=== PATIENT | male | born 1965 | race Caucasian/White ===

== ENCOUNTER 2021-01-25 21:34 | Inpatient (IN) | payer BC, SELFPAY ==
[2021-01-25 21:35] VITALS: BP 139/85; PULSE 73; RESP 16; TEMP 36.6; O2SAT 93; BMI 38.5
--- NOTE | 2021-01-25 21:58 | EKG12_ITS ---
Test Reason : DYSRHYTHMIA Blood Pressure : / mmHG Vent. Rate : 121 BPM Atrial Rate : 093 BPM P-R Int : 000 ms QRS Dur : 094 ms QT Int : 296 ms P-R-T Axes : 000 -12 -04 degrees QTc Int : 420 ms Atrial fibrillation with rapid ventricular response Nonspecific ST abnormality Abnormal ECG Confirmed by MAYRA DO, JORDAN ([id number]), supervising editor trailer ABDELRAHMAN FREED ([id number]) on 01/26/2021 10:10:18 AM Referred By: Confirmed By:JORDAN NUNEZ MD
[2021-01-25 22:46] LABS: Absolute Lymphocyte Count 2.21 X10^3/uL (0.83-4.51); Absolute Neutrophil Count 5.5 X10^3/uL (2.0-7.7); Basophil# 0.09 X10^3/uL; Basophil% 1.1 % (0-1); Eosinophil# 0.04 X10^3/uL; Eosinophils% 0.5 % (0-5); Hematocrit 44.8 % (40-54); Lymphocyte # 2.21 X10^3/ul (0.83-4.51); Mean Corp Hgb Conc 33.5 g/dL (32-36); Mean Corpuscular Hgb 32.4 pg (27.0-32.0); Mean Corpuscular Volume 96.8 fL (80-94); Mean Platelet Vol. 9.2 fl (6.2-12.0); Monocyte# 0.66 X10^3/uL; Monocyte% 7.8 % (0-10); NRBC Flagged by Analyzer 0 % (0-5); Neutrophil # 5.48 X10^3/uL (2.7-7.7); Neutrophil % 64.4 % (47-70); Platelet Count 323 K/mm3 (150-450); RBC Distribution Width CV 16.7 % (11.6-14.6); RBC Distribution Width SD 59.5 fl (35.1-43.9); Red Blood Count 4.63 M/mm3 (4.6-6.2); White Blood Count 8.5 K/mm3 (4.4-11.0)
--- NOTE | 2021-01-25 22:50 | RAD_ITS ---
INDICATION: dyspnea, being checked out because of alcohol intoxication. EXAMINATION/TECHNIQUE: X-RAY - XR Chest 1 View COMPARISON: None. FINDINGS: The lungs are clear. The cardiomediastinal silhouette is unremarkable. No pleural effusion or pneumothorax. No acute osseous abnormalities. RAD/Chest 1 View (Portable) IMPRESSION: No acute radiographic abnormalities. Electronically Signed: Vinod Garcia MD at 23:40 EDT Tel , Service support ,
[2021-01-25 22:51] LABS: Prothrombin Time (Protime)PT. 12.9 SECONDS (11.7-14.9)
[2021-01-25 22:52] LABS: Partial Thromboplast Time 24.9 Seconds (24.1-36.2)
[2021-01-25 23:10] LABS: Amphetamine Urine VISTA NEGATIVE (<1000 ng/mL); Barbiturate Urine VISTA NEGATIVE (< 200 ng/mL); Benzodiazepine Urine VISTA NEGATIVE (< 200 ng/mL); Cocaine Urine VISTA NEGATIVE (< 300 ng/mL); Ecstacy Urine VISTA NEGATIVE (< 500 ng/mL); Methadone Urine VISTA NEGATIVE (< 300 ng/mL); PCP Urine VISTA NEGATIVE (< 25 ng/mL); THC Urine VISTA NEGATIVE (< 50 ng/mL); Vista UDS pH Range 6
[2021-01-25 23:10] LABS: ALB/GLOB Ratio 0.8 RATIO (0.9-2.4); AST(SGOT) 145 U/L (15-37); Alanine Aminotransfer ALT/SGPT 171 U/L (16-61); Albumin, Serum 3.5 g/dL (3.2-5.0); Alkaline Phosphatase 107 U/L (45-117); Anion Gap 12 (5-15); BUN 7 mg/dL (7-18); BUN/Creat Ratio 8.4 RATIO (10-20); Calcium,Total 8.4 mg/dL (8.5-10.1); Chloride 106 mmol/L (98-107); Creatinine, Serum 0.83 mg/dL (0.70-1.30); EST Glomerular Filtration Rate 103 mL/min (>60); Est Glom Filt Rate - Afr Amer 124 mL/min (>60); Estimated Creatinine Clearance 119.67 ml/min; Globulin 4.3 g/dL (2.2-4.2); Glucose 127 mg/dL (74-106); Magnesium 1.9 mg/dL (1.6-2.6); Potassium 3.5 mmol/L (3.5-5.1); Protein, Total 7.8 g/dL (6.4-8.2); Sodium Level 143 mmol/L (136-145); Thyroid Stim Hormone (TSH) 4.19 uIU/mL (0.358-3.74)
--- NOTE | 2021-01-25 23:10 | EX.ED.DYSGE1 ---
HPI History of Present Illness Chief Complaint: ETOH Intox Informant: patient Narrative Narrative: 55-year-old male presents to the emergency department for alcohol detox. Patient states that 3 to 4 months ago [address] gave up street drugs which she had been using continuously for decades. In its place he put alcohol. He has been drinking 1/2 gallon or more of vodka per day. He states his girlfriend's been hiding from him and his ration them down to just a few drinks a day but recently started to escalate. States he will wake up in the middle the night and have to drink in order to sleep. He states that he just needs to find a way to stop alcohol as it is starting to negatively affect his life. Patient notes that he takes metoprolol for paroxysmal atrial fibrillation. He states that typically he can feel it will take an extra metoprolol and it resolves. [facility] Medical History (Updated 01/26/21 @ 00:[address] Ricky Zeng DO) Hypertension Hypothyroid Paroxysmal atrial fibrillation with RVR Home Medications levothyroxine 50 mcg PO DAILY 01/25/21 [History Last Taken Unknown] metoprolol tartrate 50 mg PO DAILY 01/25/21 [History Last Taken Unknown] Allergy/AdvReac Type Severity Reaction Status Date / Time No Known Allergies Allergy Verified 01/25/21 21:37 Surgical History History of hemorrhoidectomy Social History (Updated 01/25/21 @ 23:[address] Ricky Zeng DO) Smoking Status: Never smoker alcohol intake: current details: Half gallon + of vodka/day substance use type: former substance user ROS ROS ED Constitutional Constitutional ED: Denies chills or weight loss Eyes Eyes: Denies change in vision or diplopia ENT ENT ED: Denies ear pain, rhinorrhea or sore throat Cardiovascular Cardiovascular: Denies chest pain, orthopnea, palpitations or racing heartbeat Respiratory/Chest Respiratory/Chest: Denies cough, dyspnea or orthopnea Gastrointestinal Gastrointestinal: Denies abdominal pain, diarrhea, nausea or vomiting Genitourinary Genitourinary ED: Denies dysuria, hematuria or urinary frequency Musculoskeletal Musculoskeletal: Denies arthralgias or myalgias Integumentary Denies abscess or rash Neurologic Neurologic: Denies headache(s) or weakness Psychiatric Psychiatric: Reports depression; Denies anxiety, suicidal ideation or suicidal thoughts Endocrine Endocrinology: Denies polydipsia, polyphagia or polyuria Allergic/Immunologic Allergic/Immunologic ED: Denies mouth swelling, tongue swelling or urticaria EXAM Physical Exam Const Vital Signs: 01/25/21 21:35 01/25/21 23:35 01/26/21 00:10 Temperature 98 F Temperature Source Oral Pulse Rate 73 140 H 121 H Respiratory Rate 16 14 19 H Blood Pressure 139/85 H 146/101 H 137/98 H Blood Pressure Mean 103 116 111 Pulse Ox 93 97 94 Oxygen Delivery Method Room Air Positive well nourished and well developed General Appearance ED: well developed HEENT Reports normocephalic, head/scalp atraumatic and moist mucous membranes Eyes PERRL and EOMs intact bilaterally Neck no lymphadenopathy, supple and no JVD Resp normal respiratory effort and clear to auscultation bilaterally Cardio no murmurs Cardio Narrative: Irregularly irregular tachycardic rhythm GI normal to inspection, nondistended, normoactive bowel sounds and non-tender Palpation: soft Back/Spine no CVA tenderness and normal ROM Extremity normal to inspection General Extremety ED: Negative for edema General Extremity: Negative for edema Neuro oriented x3 and CN's II-XII intact bilaterally Sensorium / Orientation: alert Motor Exam: strength 5/5 throughout Psych mental status grossly normal Mood & Affect: Negative for depressed or tearful Skin no rashes or lesions noted and no wounds MDM MDM MDM Narrative Medical decision making narrative: Patient noted to be in A. fib with RVR. He received 2 doses of IV metoprolol as that is what has worked for him in the past. This did not change his heart rate. He was then given Cardizem. His alcohol level tonight is 352. Troponin is negative. TSH 4.19. He is on levothyroxine. Electrolytes are in check. Plan will be admission into the hospital alcohol detox Lab Data Attestation: I reviewed the patient's lab results. Labs: Laboratory Results - last 24 hr 01/25/21 01/25/21 01/25/21 21:45 21:45 21:45 WBC 8.5 RBC 4.63 Hgb 15.0 Hct 44.8 MCV 96.8 H MCH 32.4 H MCHC 33.5 RDW Std Deviation 59.5 H RDW Coeff of Melecio 16.7 H Plt Count 323 MPV 9.2 Immature Gran % (Auto) 0.200 Neut % (Auto) 64.4 Lymph % (Auto) 26.0 [place] % (Auto) 7.8 Eos % (Auto) 0.5 Baso % (Auto) 1.1 H Absolute Neuts (auto) 5.5 Absolute Lymphs (auto) 2.21 Nucleated RBC % 0 PT 12.9 INR 1.0 APTT 24.9 Sodium 143 Potassium 3.5 Chloride 106 Carbon Dioxide 25.0 Anion Gap 12 BUN 7 Creatinine 0.83 Estim Creat Clear Calc 119.67 Est GFR (MDRD) Af Amer 124 Est GFR (MDRD) Non-Af 103 BUN/Creatinine Ratio 8.4 L Glucose 127 H Calcium 8.4 L Magnesium 1.9 Total Bilirubin 0.60 AST 145 H ALT 171 H Alkaline Phosphatase 107 Troponin I Total Protein 7.8 Albumin 3.5 Globulin 4.3 H Albumin/Globulin Ratio 0.8 L TSH 4.19 H Urine Opiates Screen Urine Methadone Screen Ur Barbiturates Screen Ur Phencyclidine Scrn Ur Amphetamines Screen U Methamphetamin-MDMA U Benzodiazepines Scrn Urine Cocaine Screen U Cannabinoids Screen Ur Drug Screen Comment Ethyl Alcohol 01/25/21 01/25/21 01/25/21 21:45 21:45 22:05 WBC RBC Hgb Hct MCV MCH MCHC RDW Std Deviation RDW Coeff of Melecio Plt Count MPV Immature Gran % (Auto) Neut % (Auto) Lymph % (Auto) [place] % (Auto) Eos % (Auto) Baso % (Auto) Absolute Neuts (auto) Absolute Lymphs (auto) Nucleated RBC % PT INR APTT Sodium Potassium Chloride Carbon Dioxide Anion Gap BUN Creatinine Estim Creat Clear Calc Est GFR (MDRD) Af Amer Est GFR (MDRD) Non-Af BUN/Creatinine Ratio Glucose Calcium Magnesium Total Bilirubin AST ALT Alkaline Phosphatase Troponin I < 0.015 Total Protein Albumin Globulin Albumin/Globulin Ratio TSH Urine Opiates Screen NEGATIVE Urine Methadone Screen NEGATIVE Ur Barbiturates Screen NEGATIVE Ur Phencyclidine Scrn NEGATIVE Ur Amphetamines Screen NEGATIVE U Methamphetamin-MDMA NEGATIVE U Benzodiazepines Scrn NEGATIVE Urine Cocaine Screen NEGATIVE U Cannabinoids Screen NEGATIVE Ur Drug Screen Comment Ethyl Alcohol 352.0 H* Radiography Diagnostic Testing: Radiology Impression Chest X-Ray 01/25/21 22:50 IMPRESSION: No acute radiographic abnormalities. Electronically Signed: Vinod Garcia MD at 23:40 EDT Tel , Service support , EKG Initial EKG: Attestation: I personally reviewed and interpreted this EKG as follows: Comments: EKG demonstrates atrial fibrillation with rapid ventricular response at rate of 121. Discharge Plan Dx/Rx/DC Orders Clinical Impression: Alcohol addiction, Paroxysmal atrial fibrillation with RVR Disposition Disposition: Acute Care Hospital [facility]
[2021-01-25] MEDS: Metoprolol Tartrate 5 MG/5 ML Vial IV ×2 (23:34→23:51)
[2021-01-25 23:35] VITALS: BP 146/101; PULSE 140; RESP 14; O2SAT 97
[2021-01-26] VITALS (36 sets, daily range): BP systolic 105–164; BP diastolic 71–98; PULSE 70–121; RESP 11–87; TEMP 36.6–37.1; O2SAT 90–99; BMI 38.2
[2021-01-26] MEDS: Metoprolol Tartrate 5 MG/5 ML Vial IV (00:09)
[2021-01-26] MEDS: dilTIAZem 25 MG/5 ML Vial 20 MG IV BOLUS (00:31)
--- NOTE | 2021-01-26 00:45 | PCM.HP.STD ---
HPI - General HPI Narrative LOUIE HUMPHREY, is a 55 M who presents to the emergency room intoxicated who states he is requesting to go through alcohol detoxification program. The patient has a significant past medical history of atrial fibrillation for which he usually takes metoprolol as needed and is controlled, however, today he was found to be in atrial fibrillation with RVR that was resistant to metoprolol therapy. He was given a Cardizem bolus and rate was subsequently controlled. Patient denies chest pain shortness of breath fevers chills, nausea vomiting or diarrhea at this time. He states he has a long-term history of drinking half a gallon to a gallon of vodka a day and through the help of his girlfriend has been able to reduce his daily intake at one point to 3 drinks daily but was never able to completely stop drinking. At this time of remorse the patient is obviously intoxicated and ,therefore questionable in regards to his motivation. He will be admitted for atrial fibrillation and rate control and placed on CIWA protocol. [facility] Medical History (Updated 01/26/21 @ 00:[address] Ignacio Frost MD) Hypertension Hypothyroid Paroxysmal atrial fibrillation with RVR Home Medications levothyroxine 50 mcg PO DAILY 01/25/21 [History Last Taken Unknown] metoprolol tartrate 50 mg PO DAILY 01/25/21 [History Last Taken Unknown] Allergy/AdvReac Type Severity Reaction Status Date / Time No Known Allergies Allergy Verified 01/25/21 21:37 Surgical History History of hemorrhoidectomy Social History (Updated 01/25/21 @ 23:[address] Ricky Zeng DO) Smoking Status: Never smoker alcohol intake: current details: Half gallon + of vodka/day substance use type: former substance user ROS Constitutional Constitutional: Denies chills or fever(s) Eyes Eyes: Denies blurry vision ENT HEENT: Denies abnormal hearing Cardiovascular Cardiovascular: Denies chest pain or palpitations Respiratory/Chest Respiratory/Chest: Denies shortness of breath at rest Gastrointestinal Gastrointestinal: Denies abdominal pain Genitourinary Genitourinary: Denies dysuria Musculoskeletal Musculoskeletal: Denies back pain Psychiatric Psychiatric: Reports anxiety Vital Signs Vital Signs Vital Signs: 01/25/21 21:35 01/25/21 23:35 01/26/21 00:10 Temperature 98 F Temperature Source Oral Pulse Rate 73 140 H 121 H Respiratory Rate 16 14 19 H Blood Pressure 139/85 H 146/101 H 137/98 H Blood Pressure Mean 103 116 111 Pulse Ox 93 97 94 Oxygen Delivery Method Room Air 01/26/21 00:32 01/26/21 00:33 Temperature 98 F Temperature Source Oral Pulse Rate 92 92 Respiratory Rate 21 H Blood Pressure 137/98 H 137/98 H Blood Pressure Mean 111 111 Pulse Ox 95 Oxygen Delivery Method Physical Exam Const alert and no apparent distress General Appearance: cooperative HEENT head/scalp atraumatic Eyes PERRL Neck supple Lymph Lymphatic: no lymphadenopathy noted Resp normal respiratory effort, normal air movement and clear to auscultation bilaterally Cardio S1 normal heart sound and S2 normal heart sound Rhythm: abnormal rhythm irregularly irregular GI normal to inspection, nondistended, normoactive bowel sounds GI Narrative: obese Extremity General Extremity: no tenderness to palpation of joints or extremities Skin General Skin Exam: turgor normal Neuro CN's II-XII intact bilaterally Psych Mood & Affect: anxious Lab / Micro Data Result Diagrams: 01/25/21 21:45 01/25/21 21:45 Labs: Laboratory Results - last 24 hr 01/25/21 01/25/21 01/25/21 21:45 21:45 21:45 WBC 8.5 RBC 4.63 Hgb 15.0 Hct 44.8 MCV 96.8 H MCH 32.4 H MCHC 33.5 RDW Std Deviation 59.5 H RDW Coeff of Melecio 16.7 H Plt Count 323 MPV 9.2 Immature Gran % (Auto) 0.200 Neut % (Auto) 64.4 Lymph % (Auto) 26.0 [place] % (Auto) 7.8 Eos % (Auto) 0.5 Baso % (Auto) 1.1 H Absolute Neuts (auto) 5.5 Absolute Lymphs (auto) 2.21 Nucleated RBC % 0 PT 12.9 INR 1.0 APTT 24.9 Sodium 143 Potassium 3.5 Chloride 106 Carbon Dioxide 25.0 Anion Gap 12 BUN 7 Creatinine 0.83 Estim Creat Clear Calc 119.67 Est GFR (MDRD) Af Amer 124 Est GFR (MDRD) Non-Af 103 BUN/Creatinine Ratio 8.4 L Glucose 127 H Calcium 8.4 L Magnesium 1.9 Total Bilirubin 0.60 AST 145 H ALT 171 H Alkaline Phosphatase 107 Troponin I Total Protein 7.8 Albumin 3.5 Globulin 4.3 H Albumin/Globulin Ratio 0.8 L TSH 4.19 H Urine Opiates Screen Urine Methadone Screen Ur Barbiturates Screen Ur Phencyclidine Scrn Ur Amphetamines Screen U Methamphetamin-MDMA U Benzodiazepines Scrn Urine Cocaine Screen U Cannabinoids Screen Ur Drug Screen Comment Ethyl Alcohol 01/25/21 01/25/21 01/25/21 21:45 21:45 22:05 WBC RBC Hgb Hct MCV MCH MCHC RDW Std Deviation RDW Coeff of Melecio Plt Count MPV Immature Gran % (Auto) Neut % (Auto) Lymph % (Auto) [place] % (Auto) Eos % (Auto) Baso % (Auto) Absolute Neuts (auto) Absolute Lymphs (auto) Nucleated RBC % PT INR APTT Sodium Potassium Chloride Carbon Dioxide Anion Gap BUN Creatinine Estim Creat Clear Calc Est GFR (MDRD) Af Amer Est GFR (MDRD) Non-Af BUN/Creatinine Ratio Glucose Calcium Magnesium Total Bilirubin AST ALT Alkaline Phosphatase Troponin I < 0.015 Total Protein Albumin Globulin Albumin/Globulin Ratio TSH Urine Opiates Screen NEGATIVE Urine Methadone Screen NEGATIVE Ur Barbiturates Screen NEGATIVE Ur Phencyclidine Scrn NEGATIVE Ur Amphetamines Screen NEGATIVE U Methamphetamin-MDMA NEGATIVE U Benzodiazepines Scrn NEGATIVE Urine Cocaine Screen NEGATIVE U Cannabinoids Screen NEGATIVE Ur Drug Screen Comment Ethyl Alcohol 352.0 H* Radiology Impression Chest X-Ray 01/25/21 22:50 IMPRESSION: No acute radiographic abnormalities. Electronically Signed: Vinod Garcia MD at 23:40 EDT Tel , Service support , Assessment & Plan Assessment/Plan (1) Alcohol addiction: (2) Atrial fibrillation with rapid ventricular response: PLAN: Plan 1. Alcohol addiction/currently intoxicated/requesting withdrawal protocol?admit patient to progressive care unit Place patient on CIWA protocol 2. Atrial fibrillation with rapid ventricular response?patient will be admitted to progressive care unit, will add Cardizem as needed for rate control and continuing monitoring for possible chemical cardioversion as the patient states he routinely switches back into sinus rhythm. We will start patient on baby aspirin if not already on. 3. DVT prophylaxis?low molecular weight heparin Visit Charges Inpatient E&M: 31101 Init Hosp L2
[2021-01-26] MEDS: Phenobarbital 32.4 MG Tablet 64.8 MG PO ×6 (02:08→21:06)
[2021-01-26] MEDS: traZODone 100 MG Tablet PO ×2 (02:08→21:06)
[2021-01-26] MEDS: hydrOXYzine PAM 25 MG Capsule 50 MG PO ×4 (02:09→21:06)
[2021-01-26] MEDS: Gabapentin 300 MG Capsule PO ×2 (03:56→14:40)
[2021-01-26 05:39] LABS: Absolute Lymphocyte Count 1.48 X10^3/uL (0.83-4.51); Absolute Neutrophil Count 4.8 X10^3/uL (2.0-7.7); Basophil# 0.09 X10^3/uL; Basophil% 1.3 % (0-1); Eosinophil# 0.03 X10^3/uL; Eosinophils% 0.4 % (0-5); Hematocrit 39.6 % (40-54); Hemoglobin 13.5 g/dL (13.0-16.5); Lymphocyte # 1.48 X10^3/ul (0.83-4.51); Mean Corp Hgb Conc 34.1 g/dL (32-36); Mean Corpuscular Hgb 32.5 pg (27.0-32.0); Mean Corpuscular Volume 95.4 fL (80-94); Mean Platelet Vol. 9.3 fl (6.2-12.0); Monocyte# 0.69 X10^3/uL; Monocyte% 9.8 % (0-10); NRBC Flagged by Analyzer 0 % (0-5); Neutrophil # 4.75 X10^3/uL (2.7-7.7); Neutrophil % 67.4 % (47-70); Platelet Count 251 K/mm3 (150-450); RBC Distribution Width CV 16.4 % (11.6-14.6); RBC Distribution Width SD 57.5 fl (35.1-43.9); Red Blood Count 4.15 M/mm3 (4.6-6.2); White Blood Count 7.1 K/mm3 (4.4-11.0)
[2021-01-26 06:07] LABS: Anion Gap 11 (5-15); BUN 6 mg/dL (7-18); BUN/Creat Ratio 7.9 RATIO (10-20); Calcium,Total 8.1 mg/dL (8.5-10.1); Chloride 104 mmol/L (98-107); Creatinine, Serum 0.76 mg/dL (0.70-1.30); EST Glomerular Filtration Rate 114 mL/min (>60); Est Glom Filt Rate - Afr Amer 138 mL/min (>60); Estimated Creatinine Clearance 130.69 ml/min; Glucose 95 mg/dL (74-106); Potassium 3.2 mmol/L (3.5-5.1); Sodium Level 142 mmol/L (136-145)
[2021-01-26] MEDS: Levothyroxine 50 MCG Tablet PO (06:07)
[2021-01-26] MEDS: Folic Acid 1 MG Tablet PO (09:12)
[2021-01-26] MEDS: Metoprolol Tartrate 50 MG Tablet PO (09:12)
[2021-01-26] MEDS: Thiamine Hydrochloride 100 MG Tablet PO (09:12)
[2021-01-26] MEDS: Enoxaparin 40 MG/0.4 ML Syringe SC (09:13)
[2021-01-26] MEDS: Potassium Chloride Oral Tablet 20 MEQ 40 MEQ PO (09:13)
--- NOTE | 2021-01-26 09:22 | ADDICTION ---
This newswriter met with PT to conduct ASAM,MSE,AUDIT assessments and to plan for d/c. All assessments completed, faxed to [facility] and placed in PT's chart. PT declined f/u coordination and stated that he plans to attend AA meetings post d/c from [facility]. This newswriter provided counseling resources and education. PT did not identify a need for transportation post d/c from [facility]. He plans to d/c to home.
[2021-01-26] MEDS: LORazepam 2 MG/ML Syringe IV (10:26)
--- NOTE | 2021-01-26 11:41 | PCM.PN.HOSP ---
Documented by User: Shin DANIELSON 01/26/21 11:52 Subjective Subjective Patient is a 55-year-old male comfortably resting in chair, alert and oriented x3. Patient endorses tremors, denies hallucinations or loss of consciousness. Objective Data Objective Data Vital Signs: Vital Signs Temp Pulse Resp BP Pulse Ox 98.7 F 85 20 H 115/73 93 01/26/21 06:13 01/26/21 11:00 01/26/21 11:00 01/26/21 11:00 01/26/21 11:00 Oxygen Delivery Method Room Air Weight: 297 lb 9.985 oz Body Mass Index (BMI) 38.2 Intake & Output: Intake and Output for Last 24 Hours 01/24/21 01/25/21 01/26/21 23:59 23:59 23:59 Intake Total 367.00 / 367.00 Balance 367.00 / 367.00 Lab / Micro Data Result Diagrams: 01/26/21 05:10 01/26/21 05:10 Labs: Laboratory Results - last 24 hr 01/25/21 01/25/21 01/25/21 21:45 21:45 21:45 WBC 8.5 RBC 4.63 Hgb 15.0 Hct 44.8 MCV 96.8 H MCH 32.4 H MCHC 33.5 RDW Std Deviation 59.5 H RDW Coeff of Melecio 16.7 H Plt Count 323 MPV 9.2 Immature Gran % (Auto) 0.200 Neut % (Auto) 64.4 Lymph % (Auto) 26.0 [place] % (Auto) 7.8 Eos % (Auto) 0.5 Baso % (Auto) 1.1 H Absolute Neuts (auto) 5.5 Absolute Lymphs (auto) 2.21 Nucleated RBC % 0 PT 12.9 INR 1.0 APTT 24.9 Sodium 143 Potassium 3.5 Chloride 106 Carbon Dioxide 25.0 Anion Gap 12 BUN 7 Creatinine 0.83 Estim Creat Clear Calc 119.67 Est GFR (MDRD) Af Amer 124 Est GFR (MDRD) Non-Af 103 BUN/Creatinine Ratio 8.4 L Glucose 127 H Calcium 8.4 L Magnesium 1.9 Total Bilirubin 0.60 AST 145 H ALT 171 H Alkaline Phosphatase 107 Troponin I Total Protein 7.8 Albumin 3.5 Globulin 4.3 H Albumin/Globulin Ratio 0.8 L TSH 4.19 H Urine Opiates Screen Urine Methadone Screen Ur Barbiturates Screen Ur Phencyclidine Scrn Ur Amphetamines Screen U Methamphetamin-MDMA U Benzodiazepines Scrn Urine Cocaine Screen U Cannabinoids Screen Ur Drug Screen Comment Ethyl Alcohol 01/25/21 01/25/21 01/25/21 21:45 21:45 22:05 WBC RBC Hgb Hct MCV MCH MCHC RDW Std Deviation RDW Coeff of Melecio Plt Count MPV Immature Gran % (Auto) Neut % (Auto) Lymph % (Auto) [place] % (Auto) Eos % (Auto) Baso % (Auto) Absolute Neuts (auto) Absolute Lymphs (auto) Nucleated RBC % PT INR APTT Sodium Potassium Chloride Carbon Dioxide Anion Gap BUN Creatinine Estim Creat Clear Calc Est GFR (MDRD) Af Amer Est GFR (MDRD) Non-Af BUN/Creatinine Ratio Glucose Calcium Magnesium Total Bilirubin AST ALT Alkaline Phosphatase Troponin I < 0.015 Total Protein Albumin Globulin Albumin/Globulin Ratio TSH Urine Opiates Screen NEGATIVE Urine Methadone Screen NEGATIVE Ur Barbiturates Screen NEGATIVE Ur Phencyclidine Scrn NEGATIVE Ur Amphetamines Screen NEGATIVE U Methamphetamin-MDMA NEGATIVE U Benzodiazepines Scrn NEGATIVE Urine Cocaine Screen NEGATIVE U Cannabinoids Screen NEGATIVE Ur Drug Screen Comment Ethyl Alcohol 352.0 H* 01/26/21 01/26/21 05:10 05:10 WBC 7.1 RBC 4.15 L Hgb 13.5 Hct 39.6 L MCV 95.4 H MCH 32.5 H MCHC 34.1 RDW Std Deviation 57.5 H RDW Coeff of Melecio 16.4 H Plt Count 251 MPV 9.3 Immature Gran % (Auto) 0.100 Neut % (Auto) 67.4 Lymph % (Auto) 21.0 [place] % (Auto) 9.8 Eos % (Auto) 0.4 Baso % (Auto) 1.3 H Absolute Neuts (auto) 4.8 Absolute Lymphs (auto) 1.48 Nucleated RBC % 0 PT INR APTT Sodium 142 Potassium 3.2 L Chloride 104 Carbon Dioxide 27.0 Anion Gap 11 BUN 6 L Creatinine 0.76 Estim Creat Clear Calc 130.69 Est GFR (MDRD) Af Amer 138 Est GFR (MDRD) Non-Af 114 BUN/Creatinine Ratio 7.9 L Glucose 95 Calcium 8.1 L Magnesium Total Bilirubin AST ALT Alkaline Phosphatase Troponin I Total Protein Albumin Globulin Albumin/Globulin Ratio TSH Urine Opiates Screen Urine Methadone Screen Ur Barbiturates Screen Ur Phencyclidine Scrn Ur Amphetamines Screen U Methamphetamin-MDMA U Benzodiazepines Scrn Urine Cocaine Screen U Cannabinoids Screen Ur Drug Screen Comment Ethyl Alcohol Radiography Diagnostic Testing: Radiology Impression Chest X-Ray 01/25/21 22:50 IMPRESSION: No acute radiographic abnormalities. Electronically Signed: Vinod Garcia MD at 23:40 EDT Tel , Service support , Physical Exam Narrative See subjective. Const alert and oriented x3 General Appearance: anxious HEENT head/scalp atraumatic and moist oral mucous membranes Head and Scalp: normocephalic Eyes PERRL, EOMs intact bilaterally and conjunctivae normal Neck no lymphadenopathy, supple and no JVD Resp normal respiratory effort, no use of accessory muscles and clear to auscultation bilaterally Cardio regular rate, regular rhythm, no murmurs and no JVD GI normal to inspection, nondistended, normoactive bowel sounds, soft to palpation, non-tender and non-distended Extremity normal to inspection, full ROM and no clubbing, cyanosis or edema Skin no rashes or lesions noted, no wounds and no jaundice Neuro CN's II-XII intact bilaterally Psych affect normal Assessment & Plan Assessment/Plan (1) Atrial fibrillation with rapid ventricular response: (2) Alcohol abuse: PLAN: 1) Alcohol abuse/Impending withdrawal Endorses drinking 1/2 gallon to a full gallon of vodka per day, as well as needing to wake up in the middle the night to drink in order to help him sleep. On my exam today patient reports and displays mild to moderate hand tremors, as well as difficulty sleeping. Ativan x1 given. Addiction medicine counselor met with patient, patient would like to read more about program before deciding to enroll. JHONNYWA AR score 9. Plan; continue phenobarbital taper, continue thiamine and folic acid replacement, gabapentin as needed, Bentyl as needed, Vistaril as needed, Imodium as needed, Zofran as needed, trazodone as needed, 180 consulted, will transfer to ICU if indicated. 2) A-Fib w/ RVR Rate controlled on diltiazem p.o. Diltiazem infusion discontinued due to concerns of worsening withdrawal. Plan; continue Lopressor p.o. daily, continue Cardizem p.o. twice daily. DVT prophylaxis -Lovenox SC Patient seen by Shin Ortiz PA-C, under the supervision of Dr. Washburn. Documented by User: Dr. Adrian Washburn MD 01/26/21 12:59 Objective Data Lab / Micro Data Result Diagrams: 01/26/21 05:10 01/26/21 05:10 Assessment & Plan Addt'l Comments This patient was seen in conjunction with Shin Ortiz PA-C. I have independently interviewed and examined the patient and reviewed pertinent historical, laboratory, and other data. Please refer to Shin Ortiz PA-C's note for details of this patient's presentation, findings, and recommendations. I have reviewed Shin Oritz PA-C's note and concur with documented findings. In brief, patient is a 55-year-old with history of chronic alcohol dependence presented with acute alcohol intoxication. Patient was also found to be in A. fib with RVR admitted to a monitored bed for further management Physical Examination: GENERAL: Patient appears delirious and restless HEENT: Atraumatic; EYES; Anicteric, Normal Conjunctiva NECK; supple, normal thyroid, RESPIRATORY: Diminished to auscultation CARDIOVASCULAR: Regular S1 S2, GI: soft, normoactive bowel sounds, : No Renal angle tenderness; EXTREMITIES: No edema, no clubbing, MUSCULOSKELETAL: no muscle waisting NEURO: Awake; no lateralizing signs. SKIN: No Rash PSYCH; restless Assessment: 1. New onset A. fib with RVR 2. Acute alcohol withdrawal 3. Chronic alcohol dependence 4. Obesity with BMI of 38.2 5. Hypokalemia 6. DVT prophylaxis Recommendations: 1. I have discussed the results of my overview and impressions with the patient 2. Options for management were reviewed Visit Charges Inpatient E&M: 26369 [facility] Hosp L3
[2021-01-26] MEDS: dilTIAZem 60 MG CAP.SR.12H PO ×2 (11:44→21:06)
[2021-01-26] MEDS: 0.9% Saline Lock 10 ML Syringe IV (12:51)
[2021-01-27] VITALS (12 sets, daily range): BP systolic 116–142; BP diastolic 75–85; PULSE 83–132; RESP 18; TEMP 36.4–36.9; O2SAT 95–97
[2021-01-27] MEDS: Phenobarbital 32.4 MG Tablet 64.8 MG PO ×6 (01:46→21:40)
[2021-01-27] MEDS: LORazepam 0.5 MG Tablet PO (01:46)
[2021-01-27] MEDS: Levothyroxine 50 MCG Tablet PO (06:18)
[2021-01-27 07:10] LABS: Absolute Neutrophil Count 6.3 X10^3/uL (2.0-7.7); Basophil# 0.06 X10^3/uL; Basophil% 0.7 % (0-1); Eosinophil# 0.06 X10^3/uL; Eosinophils% 0.7 % (0-5); Hematocrit 40.4 % (40-54); Hemoglobin 13.5 g/dL (13.0-16.5); Lymphocyte % 16.4 % (19-41); Mean Corp Hgb Conc 33.4 g/dL (32-36); Mean Corpuscular Hgb 32.4 pg (27.0-32.0); Mean Corpuscular Volume 96.9 fL (80-94); Mean Platelet Vol. 9.7 fl (6.2-12.0); Monocyte% 8.2 % (0-10); NRBC Flagged by Analyzer 0.2 % (0-5); Neutrophil # 6.29 X10^3/uL (2.7-7.7); Neutrophil % 73.5 % (47-70); Platelet Count 199 K/mm3 (150-450); RBC Distribution Width CV 15.9 % (11.6-14.6); RBC Distribution Width SD 56.6 fl (35.1-43.9); Red Blood Count 4.17 M/mm3 (4.6-6.2); White Blood Count 8.6 K/mm3 (4.4-11.0)
[2021-01-27 07:45] LABS: AST(SGOT) 80 U/L (15-37); Alanine Aminotransfer ALT/SGPT 106 U/L (16-61); Albumin, Serum 3.1 g/dL (3.2-5.0); Alkaline Phosphatase 86 U/L (45-117); Anion Gap 8 (5-15); BUN 7 mg/dL (7-18); BUN/Creat Ratio 8.5 RATIO (10-20); Bilirubin, Direct 0.43 mg/dL (0.00-0.30); Calcium,Total 8.7 mg/dL (8.5-10.1); Chloride 102 mmol/L (98-107); Creatinine, Serum 0.82 mg/dL (0.70-1.30); EST Glomerular Filtration Rate 104 mL/min (>60); Est Glom Filt Rate - Afr Amer 126 mL/min (>60); Estimated Creatinine Clearance 121.13 ml/min; Globulin 3.8 g/dL (2.2-4.2); Glucose 104 mg/dL (74-106); Magnesium 1.5 mg/dL (1.6-2.6); Potassium 3.4 mmol/L (3.5-5.1); Protein, Total 6.9 g/dL (6.4-8.2); Sodium Level 138 mmol/L (136-145)
[2021-01-27] MEDS: Enoxaparin 40 MG/0.4 ML Syringe SC (08:57)
[2021-01-27] MEDS: Potassium Chloride Oral Tablet 20 MEQ 40 MEQ PO (08:57)
[2021-01-27] MEDS: Metoprolol Tartrate 50 MG Tablet PO ×2 (08:58→21:40)
[2021-01-27] MEDS: Thiamine Hydrochloride 100 MG Tablet PO (08:58)
[2021-01-27] MEDS: Folic Acid 1 MG Tablet PO (08:58)
[2021-01-27] MEDS: dilTIAZem 60 MG CAP.SR.12H PO ×2 (08:58→21:40)
[2021-01-27] MEDS: hydrOXYzine PAM 25 MG Capsule 50 MG PO (13:26)
[2021-01-27] MEDS: 0.9% Saline Lock 10 ML Syringe IV ×2 (13:30→21:42)
--- NOTE | 2021-01-27 13:33 | PCM.PN.HOSP ---
Documented by User: Shin DANIELSON 01/27/21 13:43 Subjective Subjective Patient is a 55-year-old male comfortably resting in bed, alert and orient x3. Patient reports improvement in regards with withdrawal symptoms, specifically hand tremors and lack of coordination. Patient endorses getting about 5 hours of sleep last night after receiving dose of Ativan. Denies chest pain, shortness of breath, palpitations, sputum production, fever, chills, N/V/D. Objective Data Objective Data Vital Signs: Vital Signs Temp Pulse Resp BP Pulse Ox 97.5 F L 132 H 18 142/83 H 96 01/27/21 08:56 01/27/21 08:58 01/27/21 08:56 01/27/21 08:56 01/27/21 08:56 Oxygen Delivery Method Room Air Weight: 297 lb 9.985 oz Body Mass Index (BMI) 38.2 Intake & Output: Intake and Output for Last 24 Hours 01/25/21 01/26/21 01/27/21 23:59 23:59 23:59 Intake Total 1585.75 / 1585.75 1320 / 1320 Balance 1585.75 / 1585.75 1320 / 1320 Lab / Micro Data Result Diagrams: 01/27/21 06:30 01/27/21 06:30 Labs: Laboratory Results - last 24 hr 01/27/21 01/27/21 06:30 06:30 WBC 8.6 RBC 4.17 L Hgb 13.5 Hct 40.4 MCV 96.9 H MCH 32.4 H MCHC 33.4 RDW Std Deviation 56.6 H RDW Coeff of Melecio 15.9 H Plt Count 199 MPV 9.7 Immature Gran % (Auto) 0.500 Neut % (Auto) 73.5 H Lymph % (Auto) 16.4 L [place] % (Auto) 8.2 Eos % (Auto) 0.7 Baso % (Auto) 0.7 Absolute Neuts (auto) 6.3 Absolute Lymphs (auto) 1.40 Nucleated RBC % 0.2 Sodium 138 Potassium 3.4 L Chloride 102 Carbon Dioxide 28.0 Anion Gap 8 BUN 7 Creatinine 0.82 Estim Creat Clear Calc 121.13 Est GFR (MDRD) Af Amer 126 Est GFR (MDRD) Non-Af 104 BUN/Creatinine Ratio 8.5 L Glucose 104 Calcium 8.7 Magnesium 1.5 L Total Bilirubin 1.90 H Direct Bilirubin 0.43 H AST 80 H ALT 106 H Alkaline Phosphatase 86 Total Protein 6.9 Albumin 3.1 L Globulin 3.8 Physical Exam Narrative See subjective. Const alert, oriented x3 and no apparent distress HEENT head/scalp atraumatic and moist oral mucous membranes Head and Scalp: normocephalic Eyes PERRL, EOMs intact bilaterally and conjunctivae normal Neck no lymphadenopathy, supple and no JVD Resp normal respiratory effort, no use of accessory muscles and clear to auscultation bilaterally Cardio no murmurs and no JVD Rate: tachycardic GI normal to inspection, nondistended, normoactive bowel sounds, soft to palpation, non-tender and non-distended Extremity normal to inspection, full ROM and no clubbing, cyanosis or edema Skin no rashes or lesions noted, no wounds and no jaundice Neuro CN's II-XII intact bilaterally Psych affect normal Assessment & Plan Assessment/Plan (1) Atrial fibrillation with rapid ventricular response: (2) Alcohol abuse: PLAN: 1) Alcohol abuse/Impending withdrawal Endorses drinking 1/2 gallon to a full gallon of vodka per day, as well as needing to wake up in the middle the night to drink in order to help him sleep.? Today patient reports improvement of his tremors and lack of coordination from yesterday, my physical exam displays the same. CIWA AR score as of 1200 on 01/27/2021 is 1, down from 9 yesterday. Addiction medicine counselor met with patient, patient would like to read more about program before deciding to enroll. Plan; continue phenobarbital taper, continue thiamine and folic acid replacement, gabapentin as needed, Bentyl as needed, Vistaril as needed, Imodium as needed, Zofran as needed, trazodone as needed, 180 consulted, will transfer to ICU if indicated. 2) A-Fib w/ RVR Rate controlled on diltiazem p.o.?patient has been displaying sustained tachycardia at a rate above 120 bpm. Patient states that 2 years ago his metoprolol dose was reduced from twice daily to once daily. Will increase metoprolol back to twice daily. Plan; continue Cardizem p.o. twice daily, initiate metoprolol 50 mg p.o. twice daily. DVT prophylaxis -Lovenox SC Patient seen by Shin Ortiz PA-C, under the supervision of Dr. Washburn. Documented by User: Dr. Adrian Washburn MD 01/27/21 14:18 Objective Data Lab / Micro Data Result Diagrams: 01/27/21 06:30 01/27/21 06:30 Assessment & Plan Addt'l Comments This patient was seen in conjunction with Shin Ortiz PA-C.? I have independently interviewed and examined the patient and reviewed pertinent historical, laboratory, and other data.? Please refer to Shin Ortiz PA-C's? note for details of this patient's presentation, findings, and recommendations.? I have reviewed ? Shin Ortiz PA-C's? note and concur? with documented findings. In brief, patient is a 55-year-old with history of chronic alcohol dependence presented with acute alcohol intoxication.? Patient was also found to be in A. fib with RVR admitted to a monitored bed for further management 01/27/2021; patient seen less tremulous compared to the previous day. Heart rate remains uncontrolled. Adjusted patient meds specifically beta-blockers Physical Examination: GENERAL: Patient is cooperative HEENT: Atraumatic; EYES; Anicteric, Normal Conjunctiva NECK; supple, normal thyroid, RESPIRATORY: Diminished to auscultation CARDIOVASCULAR:? Regular S1 S2, GI:? soft, normoactive bowel sounds, : No Renal angle tenderness; EXTREMITIES:? No edema, no clubbing, MUSCULOSKELETAL:? no muscle waisting NEURO:? Awake;? no lateralizing signs. SKIN:? No Rash PSYCH; restless Assessment:? 1.? New onset A. fib with RVR 2.? Acute alcohol withdrawal 3.? Chronic alcohol dependence 4.? Obesity with BMI of 38.2 5.? Hypokalemia 6.? Essential hypertension 7. DVT prophylaxis Recommendations: 1.? I have discussed the results of my overview and impressions with the patient 2.? Options for management were reviewed Visit Charges Inpatient E&M: 29026 Subs Hosp L2
[2021-01-27] MEDS: Loperamide 2 MG Capsule PO (17:58)
[2021-01-27] MEDS: traZODone 100 MG Tablet PO (23:28)
[2021-01-28] VITALS (7 sets, daily range): BP systolic 122–139; BP diastolic 76–89; PULSE 83–100; RESP 18; TEMP 36.5–36.8; O2SAT 92–97
[2021-01-28] MEDS: Phenobarbital 32.4 MG Tablet 64.8 MG PO ×3 (02:15→08:10)
[2021-01-28] MEDS: Levothyroxine 50 MCG Tablet PO (06:12)
[2021-01-28 06:40] LABS: Absolute Lymphocyte Count 1.52 X10^3/uL (0.83-4.51); Absolute Neutrophil Count 6.8 X10^3/uL (2.0-7.7); Basophil# 0.05 X10^3/uL; Basophil% 0.5 % (0-1); Eosinophil# 0.17 X10^3/uL; Eosinophils% 1.8 % (0-5); Hematocrit 41.7 % (40-54); Hemoglobin 13.7 g/dL (13.0-16.5); Lymphocyte # 1.52 X10^3/ul (0.83-4.51); Lymphocyte % 16.5 % (19-41); Mean Corp Hgb Conc 32.9 g/dL (32-36); Mean Corpuscular Hgb 32.4 pg (27.0-32.0); Mean Corpuscular Volume 98.6 fL (80-94); Mean Platelet Vol. 10.1 fl (6.2-12.0); Monocyte# 0.63 X10^3/uL; Monocyte% 6.8 % (0-10); NRBC Flagged by Analyzer 0 % (0-5); Neutrophil # 6.81 X10^3/uL (2.7-7.7); Neutrophil % 73.8 % (47-70); Platelet Count 150 K/mm3 (150-450); RBC Distribution Width CV 16.3 % (11.6-14.6); RBC Distribution Width SD 58.5 fl (35.1-43.9); Red Blood Count 4.23 M/mm3 (4.6-6.2); White Blood Count 9.2 K/mm3 (4.4-11.0)
[2021-01-28 07:03] LABS: Anion Gap 8 (5-15); BUN 8 mg/dL (7-18); BUN/Creat Ratio 9.1 RATIO (10-20); Calcium,Total 8.6 mg/dL (8.5-10.1); Chloride 104 mmol/L (98-107); Creatinine, Serum 0.88 mg/dL (0.70-1.30); EST Glomerular Filtration Rate 97 mL/min (>60); Est Glom Filt Rate - Afr Amer 117 mL/min (>60); Estimated Creatinine Clearance 112.87 ml/min; Glucose 101 mg/dL (74-106); Magnesium 1.5 mg/dL (1.6-2.6); Potassium 3.3 mmol/L (3.5-5.1); Sodium Level 140 mmol/L (136-145)
[2021-01-28] MEDS: Thiamine Hydrochloride 100 MG Tablet PO (08:10)
[2021-01-28] MEDS: Folic Acid 1 MG Tablet PO (08:11)
[2021-01-28] MEDS: Potassium Chloride Oral Tablet 20 MEQ 40 MEQ PO (08:11)
[2021-01-28] MEDS: Enoxaparin 40 MG/0.4 ML Syringe SC (08:11)
[2021-01-28] MEDS: dilTIAZem 60 MG CAP.SR.12H PO (08:11)
[2021-01-28] MEDS: Metoprolol Tartrate 50 MG Tablet PO (08:12)
--- NOTE | 2021-01-28 09:54 | DS.PCM_ITS ---
Providers Date of Admission: 01/26/21 Primary Care Physician: Dr. Ruddy Nassar MD Reason For Visit: A FIB RVR, ALCOHOL INTOXICATION Diagnosis Discharge Diagnosis (1) Atrial fibrillation with rapid ventricular response: Status: Acute Code(s): I48.91 - Unspecified atrial fibrillation (2) Alcohol abuse: Status: Acute Code(s): F10.10 - Alcohol abuse, uncomplicated (3) Paroxysmal A-fib: Status: Acute Code(s): I48.0 - Paroxysmal atrial fibrillation Medications at Discharge Home Medications levothyroxine 50 mcg PO DAILY 01/25/21 aspirin 81 mg PO DAILY #90 tab 01/28/21 diltiazem HCl [Cartia XT] 120 mg PO DAILY #90 cap 01/28/21 potassium chloride [Klor-Con M20] 40 meq PO DAILYCM #30 tab 01/28/21 Hospital Course Summary of Care Provided Minutes Spent on Discharge: 35 Hospital Course: Patient is a 55-year-old with history of chronic alcohol dependence presented with acute alcohol intoxication.? Patient was also found to be in A. fib with RVR admitted to a monitored bed for further management Assessment:? 1.? New onset A. fib with RVR -[place] to be related to his underlying alcohol use as well as high blood pressure. Admitted to regular nursing floor started on Cardizem drip which was weaned off to p.o. Cardizem. Patient was also on metoprolol this was continued. His Kevin vas 2 score was only 1 patient was therefore not discharged home on systemic anticoagulation prescription was however waiting for aspirin 81 mg daily 2.? Acute alcohol withdrawal ?Managed with phenobarb taper 3.? Chronic alcohol dependence -Counseled on cessation 4.? Morbid obesity - With a BMI of 38.7 patient was counseled on weight reduction 5. Hypokalemia -Corrected per protocol 6.? Hypertension - Blood pressure controlled, home medications continued with dose adjustment as needed Physical Exam Narrative GENERAL: Patient is cooperative HEENT: Atraumatic; EYES; Anicteric, Normal Conjunctiva NECK; supple, normal thyroid, RESPIRATORY: Diminished to auscultation CARDIOVASCULAR:? Irregular S1 S2, GI:? soft, normoactive bowel sounds, : No Renal angle tenderness; EXTREMITIES:? No edema, no clubbing, MUSCULOSKELETAL:? no muscle waisting NEURO:? Awake;? no lateralizing signs. SKIN:? No Rash PSYCH; restless ABG / Lab / Microbiology Data Result Diagrams: 01/28/21 06:00 01/28/21 06:00 Laboratory: Laboratory Results - last 24 hr 01/28/21 01/28/21 06:00 06:00 WBC 9.2 RBC 4.23 L Hgb 13.7 Hct 41.7 MCV 98.6 H MCH 32.4 H MCHC 32.9 RDW Std Deviation 58.5 H RDW Coeff of Melecio 16.3 H Plt Count 150 MPV 10.1 Immature Gran % (Auto) 0.600 Neut % (Auto) 73.8 H Lymph % (Auto) 16.5 L [place] % (Auto) 6.8 Eos % (Auto) 1.8 Baso % (Auto) 0.5 Absolute Neuts (auto) 6.8 Absolute Lymphs (auto) 1.52 Nucleated RBC % 0 Sodium 140 Potassium 3.3 L Chloride 104 Carbon Dioxide 28.0 Anion Gap 8 BUN 8 Creatinine 0.88 Estim Creat Clear Calc 112.87 Est GFR (MDRD) Af Amer 117 Est GFR (MDRD) Non-Af 97 BUN/Creatinine Ratio 9.1 L Glucose 101 Calcium 8.6 Magnesium 1.5 L D/C Instructions Discharge Diet: No restrictions Discharge Activity: Return to Normal Activity Meaningful Use Info Meaningful Use Diagnoses (Choose all that apply): None applicable Discharge Plan Admission Admit Date/Time: 01/26/21 00:59 Primary Reason for Your Visit: Acute alcohol withdrawal, A. fib with RVR Attending Provider: Adrian Washburn Primary Care Provider: Ruddy Nassar Instructions Patient Instructions: Atrial Fibrillation Discharge Orders/Prescriptions Prescriptions: New potassium chloride [Klor-Con M20] 20 mEq Tablet,Er Particles/Crystals 40 meq PO DAILYCM Qty: 30 RF: 0 aspirin 81 mg tablet,delayed release (DR/EC) 81 mg PO DAILY Qty: 90 RF: 0 diltiazem HCl [Cartia XT] 120 mg capsule,extended release 24hr 120 mg PO DAILY Qty: 90 RF: 0 Continued levothyroxine 50 mcg Tablet 50 mcg PO DAILY RF: 0 Discontinued metoprolol tartrate 50 mg Tablet 50 mg PO DAILY RF: 0 Referrals / Follow Up: Ruddy Nassar MD [Primary Care Provider] - Within 1 Week Disposition Disposition (needs filled in before D/C Order can be placed): Home, self care Visit Charges Inpatient E&M: 39387 Disch Hosp
--- NOTE | 2021-01-28 11:11 | PHA.DC.MC ---
Pharmacy Service has performed discharge medication reconciliation and counseling for this patient. The patient was counseled on the following discharge medications and changes in medications for homegoing were reviewed. 1. DILTIAZEM 2. ASPIRIN 3. K-DUR The Reason for Use, instructions for use, and potential side effects were reviewed for all new medications. The patient's questions regarding all of their medications were answered. The patient was able to verbally demonstrate an understanding of their discharge medications. Home Medications levothyroxine 50 mcg PO DAILY 01/25/21 aspirin 81 mg PO DAILY #90 tab 01/28/21 diltiazem HCl [Cartia XT] 120 mg PO DAILY #90 cap 01/28/21 potassium chloride [Klor-Con M20] 40 meq PO DAILYCM #30 tab 01/28/21 The patient's discharge medication list was reviewed for discrepancies and discrepancies were resolved.
[2021-01-28] MEDS: Loperamide 2 MG Capsule PO (12:09)
== END 2021-01-28 12:45 | disposition home or self-care (01) | DRG 309 ==
LOC: ED 23:10 → PCU 01-26 01:40
PROVIDERS: Admitting Provider Family Medicine; Emergency Provider Emergency Medicine; PCP Family Medicine; Visit Provider Internal Medicine
DX: I48.0 Paroxysmal atrial fibrillation (principal); F10.239 Alcohol dependence with withdrawal, unspecified; F10.229 Alcohol dependence with intoxication, unspecified; E66.01 Morbid (severe) obesity due to excess calories; Z68.38 Body mass index [BMI] 38.0-38.9, adult; E87.6 Hypokalemia; I10 Essential (primary) hypertension; Z79.899 Other long term (current) drug therapy; Y90.9 Presence of alcohol in blood, level not specified
CPT/HCPCS: 36415; 71045; 80048; 80053; 80076; 80307; 82077; 83735; 84443; 84484; 85025; 85610; 85730; 93005; 99285; A4216